=== PATIENT | female | born 1975 | race Caucasian/White ===

== ENCOUNTER 2016-05-24 19:59 | Inpatient (IN) | payer OTHER ==
[~2016-05-24] VITALS: Ht 157.5 cm; Wt 64.8 kg
[~2016-05-24 19:59] MED LIST: Bactrim,Septra Suspe PO; ENDOCET 5-3251 EACH PO; FLUOXETINE HCL20 MG PO; Folic Acid PO; IBUPROFEN800 MG PO; MARTINIC1 EACH PO; MOTRIN IB200 MG PO; Slow Fe PO; ULTRACET1 TABLET PO; WOMEN'S DAILY1 EAC1 PO
[2016-05-24 20:45] LABS: MCH 30.9 PG (29.0-34.0); MCHC 34.3 G/DL (30.0-36.0); MEAN PLAT.VOLUME 10.4 uM^3 (9.5-12.4); PLATELET COUNT 265 K/uL (156-360); RBC DIS.WIDTH-CV 12.7 % (11.8-14.6); RBC DIS.WIDTH-SD 40.9 % (39-53); RED BLOOD COUNT 4.11 M/uL (3.80-5.20); WHITE BLOOD COUNT 22.2 K/uL (4.1-10.2)
[2016-05-24 20:57] LABS: CHLORIDE 102 mEq/L (99-109); POTASSIUM 3.7 mEq/L (3.7-5.4); SODIUM 134 mEq/L (136-147)
[2016-05-24 20:59] LABS: GLUCOSE 105 mg/dL (70-99)
[2016-05-24 21:01] LABS: ANION GAP 12 MEQ/L (2-14)
[2016-05-24 21:03] LABS: GFR ESTIMATE (CALCULATED) > 59 mL/min/
[2016-05-24 21:04] LABS: UREA NITROGEN (BUN) 10 mg/dL (9-23)
[2016-05-24 21:08] LABS: TROP-I INTERPRETATION NEGATIVE; TROPONIN-I < 0.01 ng/mL (0.0-0.30)
[2016-05-24] MEDS ORDERED: MIRTAZAPINE45 MG PO (23:32)
[2016-05-25 13:47] LABS: ADD MIUA? YES; BILIRUBIN NEGATIVE; BLOOD TRACE; GLUCOSE (STRIP) NEGATIVE; KETONES NEGATIVE; LEUKOCYTES NEGATIVE; NITRITE NEGATIVE; PH, URINE 6.5 (5-8); PROTEIN (STRIP) NEGATIVE; SPECIFIC GRAVITY 1.003 (1.000-1.030); UROBILINOGEN 0.2 MG/DL (0.2-1.0)
[2016-05-25 13:50] LABS: COLOR LT YELLOW ((YELLOW))
[2016-05-25 13:59] LABS: BACTERIA NONE SEEN /HPF; EPITHELIAL CELLS RARE /HPF; MUCUS TRACE /LPF; RED BLOOD CELLS 0-5 /HPF (0-5); UCUL ADDED? NO; WHITE BLOOD CELLS NONE SEEN /HPF (0-5)
[2016-05-25 19:53] VITALS: BP 132/70
[2016-05-25 23:45] VITALS: BP 115/67
[2016-05-26 03:43] VITALS: BP 120/75
[2016-05-26 07:16] LABS: INTERNAL CONTROL VALID? YES
[2016-05-26 07:30] LABS: ANION GAP 9 MEQ/L (2-14); CHLORIDE 107 MEQ/L (99-109); GFR ESTIMATE (CALCULATED) > 59 mL/min/; POTASSIUM 4.1 MEQ/L (3.7-5.4); SAMPLE HEMOLYSIS CHECK 0; SAMPLE ICTERIC CHECK 0; SAMPLE LIPEMIA CHECK 0; SODIUM 139 MEQ/L (136-147); UREA NITROGEN (BUN) 8 mg/dL (9-23)
[2016-05-26 07:32] LABS: GLUCOSE 166 mg/dL (70-99)
[2016-05-26 07:56] VITALS: BP 114/56
[2016-05-26 08:09] LABS: EOSINOPHIL (%) 0 % (0-5); HEMATOCRIT 33.6 % (36.0-46.0); IMMATURE GRANULOCYTE (%) 0.6 % (0.0-0.7); IMMATURE GRANULOCYTE COUNT 0.1 K/uL; LYMPHOCYTE COUNT 0.6 K/uL (1.0-2.8); MCH 29.8 PG (29.0-34.0); MCV 90.1 FL (83-99); MEAN PLAT.VOLUME 11.4 uM^3 (9.5-12.4); MONOCYTE (%) 0.8 % (3-12); MONOCYTE COUNT 0.1 K/uL (0-0.8); NEUTROPHIL (%) 93.9 % (45-76); NEUTROPHIL COUNT 11.5 K/uL (1.8-6.4); PLATELET COUNT 314 K/uL (156-360); RBC DIS.WIDTH-CV 13.4 % (11.8-14.6); RED BLOOD COUNT 3.73 M/uL (3.80-5.20)
[2016-05-26 08:16] LABS: WHITE BLOOD COUNT 12.3 K/uL (4.1-10.2)
[2016-05-26 11:13] VITALS: BP 103/58
[2016-05-26 15:01] VITALS: BP 111/59
[2016-05-26 20:31] VITALS: BP 124/72
[2016-05-26 23:58] VITALS: BP 122/80
[2016-05-27 04:07] VITALS: BP 120/82
[2016-05-27 09:08] LABS: HEMATOCRIT 35.7 % (36.0-46.0); MCH 31.3 PG (29.0-34.0); MCHC 34.5 G/DL (30.0-36.0); MCV 90.8 FL (83-99); PLATELET COUNT 392 K/uL (156-360); RBC DIS.WIDTH-CV 13.6 % (11.8-14.6); RBC DIS.WIDTH-SD 45.7 % (39-53); RED BLOOD COUNT 3.93 M/uL (3.80-5.20); WHITE BLOOD COUNT 14.9 K/uL (4.1-10.2)
[2016-05-27 13:25] VITALS: BP 123/74
[2016-05-27 15:29] VITALS: BP 119/54
[2016-05-27 19:39] VITALS: BP 128/66
[2016-05-28] VITALS: BP 122/68
[2016-05-28 04:00] VITALS: BP 130/73
[2016-05-28 05:17] VITALS: BP 130/73
[2016-05-28 07:22] VITALS: BP 113/58
[2016-05-28 11:08] VITALS: BP 126/56
[2016-05-28 13:50] LABS: INFLUENZA A VIRAL ANTIGEN NEGATIVE; INFLUENZA B VIRAL ANTIGEN NEGATIVE
[2016-05-28 16:30] VITALS: BP 115/67
[2016-05-28] MEDS ORDERED: LEVAQUIN750 MG PO (16:54)
[2016-05-28] MEDS ORDERED: PREDNISONE10 MG PO (16:55)
== END 2016-05-28 18:21 | disposition home or self-care (01) | DRG 195 ==
LOC: EME 19:59 → 5SOUTH 05-25 02:37 → EDOF 05-25 02:37 → 5SOUTH 05-25 19:21
PROVIDERS: Hospitalist; Internal Medicine Infectious Disease; Physician Assistant
DX: J15.9 Unspecified bacterial pneumonia (principal); B37.9 Candidiasis, unspecified; F17.210 Nicotine dependence, cigarettes, uncomplicated; F32.9 Major depressive disorder, single episode, unspecified
CPT/HCPCS: 71020; 71275; 80048; 80048 91; 81003; 83605; 84484; 85025; 85027; 87040; 87070; 87205; 87449; 87502; 93005; 94640; 94640 76; 94667; 94668; 94799; 99202; 99281; 99284; 99285; J0456; J0696; J1170; J1644; J1885; J1956; J2270; J2930; J3360; J7030; J7050; J7120

== ENCOUNTER 2016-12-21 23:47 | Emergency (ER) | payer OTHER ==
[~2016-12-21] VITALS: Ht 157.5 cm; Wt 67.2 kg
[~2016-12-21 23:47] MED LIST changes: +LEVAQUIN750 MG PO; +MIRTAZAPINE45 MG PO; +PREDNISONE10 MG PO
[2016-12-21 23:50] VITALS: BP 145/102
[2016-12-22 00:03] LABS: HEMATOCRIT 38.3 % (36.0-46.0); MCH 30.5 PG (29.0-34.0); MCHC 33.9 G/DL (30.0-36.0); MCV 89.9 FL (83-99); MEAN PLAT.VOLUME 10.9 uM^3 (9.5-12.4); PLATELET COUNT 324 K/uL (156-360); RBC DIS.WIDTH-CV 12.9 % (11.8-14.6); RBC DIS.WIDTH-SD 42.5 % (39-53); RED BLOOD COUNT 4.26 M/uL (3.80-5.20); WHITE BLOOD COUNT 9.3 K/uL (4.1-10.2)
[2016-12-22 00:14] LABS: CHLORIDE 108 mEq/L (99-109); POTASSIUM 3.3 mEq/L (3.7-5.4); SODIUM 141 mEq/L (136-147)
[2016-12-22 00:16] LABS: GLUCOSE 101 mg/dL (70-99)
[2016-12-22 00:18] LABS: ANION GAP 11 MEQ/L (2-14); TOTAL BILIRUBIN 0.2 mg/dL (0.0-1.0)
[2016-12-22 00:20] LABS: ALKALINE PHOSPHATASE 74 IU/L (3-129); GFR ESTIMATE (CALCULATED) > 59 mL/min/
[2016-12-22 00:21] LABS: UREA NITROGEN (BUN) 7 mg/dL (9-23)
[2016-12-22 00:29] LABS: QUANTITATIVE HCG < 4.0 MIU/ML
== END 2016-12-22 02:45 | disposition home or self-care (01) ==
LOC: EXP 23:47 → EME 23:47 → EXP 12-22 02:45
DX: N83.201 Unspecified ovarian cyst, right side (principal); K52.9 Noninfective gastroenteritis and colitis, unspecified; K57.30 Diverticulosis of large intestine without perforation or abscess without bleeding; K42.9 Umbilical hernia without obstruction or gangrene; Z90.721 Acquired absence of ovaries, unilateral; Z90.710 Acquired absence of both cervix and uterus; Z72.0 Tobacco use
CPT/HCPCS: 74177; 80053; 81003; 84702; 85027; 99281; 99285; J2270; J2405; J7030

== ENCOUNTER 2017-03-22 20:55 | Emergency (ER) | payer OTHER ==
[~2017-03-22] VITALS: Ht 157.5 cm; Wt 68.2 kg
[2017-03-22 21:36] LABS: HEMATOCRIT 37.4 % (36.0-46.0); MCH 31.8 PG (29.0-34.0); MCHC 35.3 G/DL (30.0-36.0); MCV 90.1 FL (83-99); MEAN PLAT.VOLUME 10.5 uM^3 (9.5-12.4); PLATELET COUNT 230 K/uL (156-360); RBC DIS.WIDTH-CV 11.9 % (11.8-14.6); RBC DIS.WIDTH-SD 39.2 % (39-53); RED BLOOD COUNT 4.15 M/uL (3.80-5.20); WHITE BLOOD COUNT 4.9 K/uL (4.1-10.2)
[2017-03-22 21:47] LABS: CHLORIDE 109 mEq/L (99-109); POTASSIUM 3.4 mEq/L (3.7-5.4); SODIUM 138 mEq/L (136-147)
[2017-03-22 21:48] LABS: GLUCOSE 81 mg/dL (70-99)
[2017-03-22 21:50] LABS: ANION GAP 9 MEQ/L (2-14)
[2017-03-22 21:52] LABS: GFR ESTIMATE (CALCULATED) > 59 mL/min/
[2017-03-22 21:53] LABS: UREA NITROGEN (BUN) 9 mg/dL (9-23)
[2017-03-23] MEDS ORDERED: PROAIR HFA8.5 GM IH (01:34)
[2017-03-23] MEDS ORDERED: ZITHROMAX Z-PA250 MG PO (01:34)
[2017-03-23] MEDS ORDERED: MEDROL DOSEPAK4 MG PO (01:34)
[2017-03-23 01:48] LABS: TROP-I INTERPRETATION NEGATIVE; TROPONIN-I < 0.01 ng/mL (0.0-0.30)
[2017-03-23 02:15] VITALS: BP 145/96
== END 2017-03-23 02:30 | disposition home or self-care (01) ==
LOC: EME 20:55 → EXP 20:55
DX: J20.9 Acute bronchitis, unspecified (principal); F32.9 Major depressive disorder, single episode, unspecified; Z72.0 Tobacco use
CPT/HCPCS: 71020; 71275; 80048; 84484; 85027; 85379; 93005; 94640; 99281; 99285